=== PATIENT | male | born 1945 | race Caucasian/White ===

== ENCOUNTER 2017-09-28 19:33 | Inpatient (IN) | payer MEDICARE ==
[~2017-09-28] VITALS: Ht 170.2 cm; Wt 61.2 kg
--- NOTE | ~2017-09-28 | OP ---
PATIENT NAME: JOAN LYNN MEDICAL RECORD: [id number] :49 LOCATION:D.MS Hansen2231 ADMISSION DATE:09/28/17 SURGEON: SHAUN BURRIS MD DATE OF OPERATION: 09/30/2017 PREOPERATIVE DIAGNOSES: 1. Cecal polyp. 2. Chronic obstructive pulmonary disease. 3. Hypertension. 4. Gastroesophageal reflux disease. POSTOPERATIVE DIAGNOSES: 1. Cecal polyp. 2. Chronic obstructive pulmonary disease. 3. Hypertension. 4. Gastroesophageal reflux disease. PROCEDURE: Hand-assisted laparoscopic right hemicolectomy. SURGEON: Shaun Burris MD DAIRY DEPARTMENT MANAGER: Linda Sutherland APRN REPORT OF PROCEDURE: The patient's abdomen was prepped and draped in sterile fashion. A cutdown was made around the umbilicus. Electrocautery was used to dissect through the subcutaneous tissues and fascia and we entered the abdominal cavity. A Gel port was inserted with a 5-mm trocar within it. Using this, we were able to insufflate the abdomen and placed a 5-mm trocar in the epigastrium and another in the right subcostal region. The patient's right colon was mobilized. Upon mobilization, the colon was noted to have a diffuse amount of stool present within it. We eventually mobilized the right colon, the appendix, and the hepatic flexure. We continued our dissection medially of the transverse colon, taking down any adhesions using electrocautery. The patient had a history of mesh hernia repair in the right lower quadrant, which was causing some adhesions. These were taken down using electrocautery and blunt dissection. Eventually, we had the entire right colon mobilized and we were able to eviscerate this through the wound protector. The colon was transected on the proximal transverse colon using a 75 blue load ISSA stapler. The terminal ileum was transected using a 75 blue load ISSA stapler. The mesentery was taken down with sequential clamp and tie technique using 3-0 silks. Once the colon was completely excised, it was opened up on the back table and the polyp was noted to be present in the cecum. A acln-ja-sakc anastomosis was performed using a 70 blue load ISSA stapler and the enterotomies were closed with a 30 blue load TA stapler. I oversewed the staple line using Lemberted 3-0 silks and the anastomosis was placed back into the abdominal cavity. We irrigated out the abdomen and assured there was no sign of any active bleeding, which there was none. The ports and insufflation were then removed. The midline fascia had a hernia defect around the umbilicus and this was freed up and then reapproximated using running #1 loop PDS's times 2. The subcutaneous tissues were irrigated out and then reapproximated with interrupted 3-0 Vicryl and the skin was closed with alfredo. COMPLICATIONS: None. CONDITION: Stable. OPERATIVE REPORT [id number] JOAN LYNN ANESTHESIA: General endotracheal. BLOOD LOSS: 30 mL. TRANSINT:[id number] Voice Confirmation ID: [id number] DOCUMENT ID: [id number] SHAUN BURRIS MD at 1147 CC: [id number] DICTATION DATE: 09/30/17 1315 FORESTRY AID: 09/30/17 1406 ADM IN [place] [id number] [place] [address]
--- NOTE | ~2017-09-28 | EC ---
PATIENT:JOAN LYNN DATE OF SERVICE: 09/28/17 SEX: M MEDICAL RECORD: [id number] DATE OF : 49 LOCATION:D.MS Hansen223 AGE OF PATIENT: 72 ADMISSION DATE: 09/28/17 REFERRING PHYSICIAN: INTERPRETING PHYSICIAN: LIZETTE ALANIZ MD ECHOCARDIOGRAM REPORT ECHO CHARGES 5 ECHO LIMITED Date: 09/30 CLINICAL DIAGNOSIS: ASSESS EF PRE SURGERY HX OF HTN ECHOCARDIOGRAPHIC MEASUREMENTS (adult normal given) AC root (d.<3.7cm) 3.8 cm LV Septum d (<1.2 cm> 1.3 cm Valve Excursion 1.2 cm LV Septum (systole) 1.5 cm Left Atria (s.<4.0cm> 3.4 cm LVPW d(<1.2cm) 1.3 cm RV (d.<2.3cm) 4.2 cm LVPW (sytole) 1.8 cm LV diastole(<5.6CM) 4.5 cm MV E-F(>70mm/sec) cm LV systole 2.8 cm LVOT Diameter cm MV exc.(>10mm) 1.5 cm Est.ejection fraction (50-75%) % DOPPLER: LVIT cm/sec A cm/sec E cm/sec LA cm/sec RVSP mmHg LVOT cm/sec AOP1/2T m/s Asc. Ao cm/sec RVOT cm/sec RA cm/sec PA cm/sec AV Gradient Peak mmHg AV Mean mmHg AV Area cm MV Gradient Peak mmHg MV Mean mmHg MV Area cm COMMENTS: Cnc Machinist: Massiel ARCE Speech Language Specialist: Massiel Allen TAPE# PACS Pericardial Effusion N DATE OF SERVICE: 09/30/2017 FINDINGS: 1. Left ventricular chamber size is within normal limits. Left ventricular systolic function is normal. Overall ejection fraction estimated at 60%. 2. Left atrium, right atrium, and right ventricular chamber sizes are within normal limits. 3. Valvular structures have normal structure and motion. 4. Doppler interrogation only reveals qjptg-vm-[id number] tricuspid regurgitation, no other valvular insufficiency or stenosis. ECHOCARDIOGRAM REPORT [id number] JOAN LYNN 5. No evidence of pericardial effusion or left ventricular thrombus. TRANSINT:[id number] Voice Confirmation ID: [id number] DOCUMENT ID: [id number] LIZETTE ALANIZ MD at 1710 CC: [id number] DICTATION DATE: 09/30/17 1353 ANALYST FOOD AND BEVERAGE: 09/30/17 1422 ADM IN [facility] [address] [facility]
[2017-09-29] VITALS (7 sets, daily range): BP systolic 120–134; BP diastolic 67–87; Ht 170.2 cm; Wt 61.2 kg
[2017-09-29 05:00] LABS: BASOPHILS 0.1 % (0-2); HEMATOCRIT 45.7 % (42.0-54.0); HEMOGLOBIN 15.1 g/dL (13.5-17.5); IMMATURE GRANULOCYTES 0.4 % (0-5); LYMPHOCYTES 22.3 % (15-50); MCH 29.4 pg (26.0-34.0); MCV 89.1 fL (80.0-100.0); MEAN PLATELET VOLUME 8.8 fL (7.4-10.4); MONOCYTES 6.7 % (2-11); NEUTROPHILS 66.5 % (40-80); PLATELET COUNT 353 10x3/uL (130-400); RBC 5.13 10x6/uL (4.20-6.10); RDW 14.2 % (11.5-14.5); WBC 7.5 10x3/uL (4.8-10.8)
[2017-09-29 05:47] LABS: ALBUMIN 3.7 g/dL (3.4-5.0); ALKALINE PHOSPHATASE 71 U/L (46-116); ALT (SGPT) 16 U/L (10-68); CALC OSMOLALITY 278 mosm/kg (275-300); CALCIUM 8.7 mg/dL (8.5-10.1); CARBON DIOXIDE 28.6 mmol/L (21.0-32.0); CHLORIDE - SERUM 104 mmol/L (98-107); CREATININE - SERUM 0.9 mg/dL (0.6-1.3); GLUCOSE 108 mg/dL (74-106); POTASSIUM - SERUM 4.1 mmol/L (3.5-5.1); SODIUM 140 mmol/L (136-145); UREA NITROGEN 10 mg/dL (7-18); eGFR NON AFRICAN AMERICAN 89 mL/min (90-120)
[2017-09-29] MEDS ORDERED: PRINIVIL20 MG PO (09:49)
[2017-09-29] MEDS ORDERED: PROTONIX40 MG PO (09:50)
[2017-09-29] MEDS ORDERED: CARAFATE1 G PO (09:51)
[2017-09-29] MEDS ORDERED: HYDROCODONE-APA1 TAB PO (09:51)
[2017-09-29] MEDS ORDERED: SOMA350 MG PO (09:52)
[2017-09-29 19:59] LABS: APTT 35.7 SECONDS (22.8-39.4); INR 1.04 (0.85-1.17); PROTIME 13.2 SECONDS (11.6-15.0)
[2017-09-30] VITALS (11 sets, daily range): BP systolic 100–149; BP diastolic 56–81
[2017-09-30 05:29] LABS: BASOPHILS 0.1 % (0-2); EOSINOPHILS 2.7 % (0-7); HEMATOCRIT 43.4 % (42.0-54.0); HEMOGLOBIN 14.3 g/dL (13.5-17.5); IMMATURE GRANULOCYTES 0.2 % (0-5); LYMPHOCYTES 16.1 % (15-50); MCH 29.2 pg (26.0-34.0); MCHC 32.9 g/dL (31.0-37.0); MCV 88.6 fL (80.0-100.0); MEAN PLATELET VOLUME 8.7 fL (7.4-10.4); MONOCYTES 5.1 % (2-11); NEUTROPHILS 75.8 % (40-80); PLATELET COUNT 347 10x3/uL (130-400); RDW 14.1 % (11.5-14.5); WBC 8.9 10x3/uL (4.8-10.8)
[2017-09-30 05:41] LABS: CALC OSMOLALITY 283 mosm/kg (275-300); CALCIUM 8.7 mg/dL (8.5-10.1); CHLORIDE - SERUM 107 mmol/L (98-107); CREATININE - SERUM 0.9 mg/dL (0.6-1.3); GLUCOSE 116 mg/dL (74-106); POTASSIUM - SERUM 4.2 mmol/L (3.5-5.1); SODIUM 143 mmol/L (136-145); eGFR NON AFRICAN AMERICAN 89 mL/min (90-120)
[2017-09-30 05:45] LABS: UREA NITROGEN 7 mg/dL (7-18)
[2017-10-01 04:55] VITALS: BP 98/74
[2017-10-01 05:27] LABS: BASOPHILS 0 % (0-2); EOSINOPHILS 0 % (0-7); IMMATURE GRANULOCYTES 0.2 % (0-5); LYMPHOCYTES 8.7 % (15-50); MCH 28.9 pg (26.0-34.0); MCHC 32.4 g/dL (31.0-37.0); MCV 89.5 fL (80.0-100.0); MEAN PLATELET VOLUME 8.8 fL (7.4-10.4); NEUTROPHILS 83.1 % (40-80); RDW 14.6 % (11.5-14.5); WBC 10.7 10x3/uL (4.8-10.8)
[2017-10-01 05:31] LABS: PLATELET COUNT 447 10x3/uL (130-400)
[2017-10-01 05:32] LABS: ANION GAP 15.3 mmol/L (8-16); CARBON DIOXIDE 23.4 mmol/L (21.0-32.0); POTASSIUM - SERUM 4.7 mmol/L (3.5-5.1)
[2017-10-01 05:42] LABS: CREATININE - SERUM 1.2 mg/dL (0.6-1.3)
[2017-10-01 08:32] VITALS: BP 102/58
[2017-10-01 11:44] VITALS: BP 123/67
[2017-10-01 16:17] VITALS: BP 110/64
[2017-10-01 19:56] VITALS: BP 130/73
[2017-10-02] VITALS: BP 135/75
[2017-10-02 04:06] VITALS: BP 136/79
[2017-10-02 06:44] LABS: BASOPHILS 0.1 % (0-2); EOSINOPHILS 0.8 % (0-7); HEMATOCRIT 30.8 % (42.0-54.0); HEMOGLOBIN 9.9 g/dL (13.5-17.5); IMMATURE GRANULOCYTES 0.1 % (0-5); LYMPHOCYTES 11.2 % (15-50); MCH 28.9 pg (26.0-34.0); MCHC 32.1 g/dL (31.0-37.0); MCV 89.8 fL (80.0-100.0); MEAN PLATELET VOLUME 8.5 fL (7.4-10.4); MONOCYTES 8.2 % (2-11); NEUTROPHILS 79.6 % (40-80); PLATELET COUNT 432 10x3/uL (130-400); RBC 3.43 10x6/uL (4.20-6.10); RDW 14.8 % (11.5-14.5); WBC 8.9 10x3/uL (4.8-10.8)
[2017-10-02 07:00] LABS: CALCIUM 8.3 mg/dL (8.5-10.1); CARBON DIOXIDE 24.6 mmol/L (21.0-32.0); CHLORIDE - SERUM 109 mmol/L (98-107); GLUCOSE 125 mg/dL (74-106); SODIUM 143 mmol/L (136-145)
[2017-10-02 07:11] LABS: CALC OSMOLALITY 284 mosm/kg (275-300); CREATININE - SERUM 0.8 mg/dL (0.6-1.3); UREA NITROGEN 11 mg/dL (7-18); eGFR NON AFRICAN AMERICAN > 90 mL/min (90-120)
[2017-10-02 08:02] VITALS: BP 173/83
[2017-10-02 11:53] VITALS: BP 168/88
[2017-10-02 16:12] VITALS: BP 158/80
[2017-10-02 19:59] VITALS: BP 150/82
[2017-10-03] VITALS: BP 150/79
[2017-10-03 04:00] VITALS: BP 166/85
[2017-10-03 06:02] LABS: BASOPHILS 0.1 % (0-2); EOSINOPHILS 1.5 % (0-7); HEMATOCRIT 27.5 % (42.0-54.0); HEMOGLOBIN 8.8 g/dL (13.5-17.5); IMMATURE GRANULOCYTES 0.1 % (0-5); LYMPHOCYTES 13.2 % (15-50); MCH 28.6 pg (26.0-34.0); MCV 89.3 fL (80.0-100.0); MEAN PLATELET VOLUME 8.4 fL (7.4-10.4); MONOCYTES 7.9 % (2-11); NEUTROPHILS 77.2 % (40-80); PLATELET COUNT 432 10x3/uL (130-400); RBC 3.08 10x6/uL (4.20-6.10); RDW 14.4 % (11.5-14.5)
[2017-10-03 06:17] LABS: CALC OSMOLALITY 284 mosm/kg (275-300); CALCIUM 7.7 mg/dL (8.5-10.1); CARBON DIOXIDE 25.8 mmol/L (21.0-32.0); CHLORIDE - SERUM 111 mmol/L (98-107); CREATININE - SERUM 0.6 mg/dL (0.6-1.3); GLUCOSE 116 mg/dL (74-106); POTASSIUM - SERUM 3.9 mmol/L (3.5-5.1); SODIUM 144 mmol/L (136-145); UREA NITROGEN 5 mg/dL (7-18); eGFR NON AFRICAN AMERICAN > 90 mL/min (90-120)
[2017-10-03 09:18] VITALS: BP 149/80
[2017-10-03 13:25] VITALS: BP 159/88
[2017-10-03 16:20] VITALS: BP 146/78
[2017-10-03 20:00] VITALS: BP 145/77
[2017-10-04] VITALS: BP 155/83
[2017-10-04 04:00] VITALS: BP 159/80
[2017-10-04 06:11] LABS: BASOPHILS 0.1 % (0-2); EOSINOPHILS 2.6 % (0-7); HEMATOCRIT 27.3 % (42.0-54.0); HEMOGLOBIN 8.7 g/dL (13.5-17.5); IMMATURE GRANULOCYTES 0.8 % (0-5); LYMPHOCYTES 12.3 % (15-50); MCH 28.4 pg (26.0-34.0); MCHC 31.9 g/dL (31.0-37.0); MCV 89.2 fL (80.0-100.0); MEAN PLATELET VOLUME 8.3 fL (7.4-10.4); NEUTROPHILS 77.2 % (40-80); PLATELET COUNT 475 10x3/uL (130-400); RBC 3.06 10x6/uL (4.20-6.10); RDW 14.4 % (11.5-14.5); WBC 7.2 10x3/uL (4.8-10.8)
[2017-10-04 06:33] LABS: CALC OSMOLALITY 284 mosm/kg (275-300); CALCIUM 7.7 mg/dL (8.5-10.1); CARBON DIOXIDE 27.1 mmol/L (21.0-32.0); CHLORIDE - SERUM 110 mmol/L (98-107); CREATININE - SERUM 0.7 mg/dL (0.6-1.3); GLUCOSE 114 mg/dL (74-106); POTASSIUM - SERUM 3.6 mmol/L (3.5-5.1); SODIUM 144 mmol/L (136-145); UREA NITROGEN 4 mg/dL (7-18); eGFR NON AFRICAN AMERICAN > 90 mL/min (90-120)
[2017-10-04 08:22] VITALS: BP 159/81
[2017-10-04] MEDS ORDERED: PROSCAR5 MG PO (10:26)
== END 2017-10-04 12:59 | disposition home or self-care (01) | DRG 330 ==
LOC: D.MS 19:33
PROVIDERS: Internal Medicine Nephrology; Surgery
PROC: 0DTF0ZZ Resection of Right Large Intestine, Open Approach (ICD-10-PCS; principal; 2017-09-30 11:00)
DX: D12.0 Benign neoplasm of cecum (principal); J44.0 Chronic obstructive pulmonary disease with (acute) lower respiratory infection; N13.8 Other obstructive and reflux uropathy; K29.60 Other gastritis without bleeding; N40.1 Benign prostatic hyperplasia with lower urinary tract symptoms; R33.8 Other retention of urine; I73.9 Peripheral vascular disease, unspecified; K21.9 Gastro-esophageal reflux disease without esophagitis; K59.00 Constipation, unspecified; I10 Essential (primary) hypertension; K75.81 Nonalcoholic steatohepatitis (NASH)

== ENCOUNTER 2017-10-07 21:00 | Inpatient (IN) | payer MEDICARE ==
[~2017-10-07] VITALS: Ht 170.2 cm; Wt 59.0 kg
--- NOTE | ~2017-10-07 | EC ---
PATIENT:JOAN LYNN DATE OF SERVICE: 10/07/17 SEX: M MEDICAL RECORD: [id number] DATE OF : 49 LOCATION:D.MS Hansen221 AGE OF PATIENT: 72 ADMISSION DATE: 10/07/17 REFERRING PHYSICIAN: INTERPRETING PHYSICIAN: LIZETTE STARK MD ECHOCARDIOGRAM REPORT ECHO CHARGES 5 ECHO LIMITED Date: 10/08 CLINICAL DIAGNOSIS: ASSESS EF/CHF POST 1 WEEK SURGERY ECHOCARDIOGRAPHIC MEASUREMENTS (adult normal given) AC root (d.<3.7cm) cm LV Septum d (<1.2 cm> 1.6 cm Valve Excursion cm LV Septum (systole) 1.8 cm Left Atria (s.<4.0cm> cm LVPW d(<1.2cm) 1.5 cm RV (d.<2.3cm) cm LVPW (sytole) 1.6 cm LV diastole(<5.6CM) 3.5 cm MV E-F(>70mm/sec) cm LV systole 1.9 cm LVOT Diameter cm MV exc.(>10mm) cm Est.ejection fraction (50-75%) % DOPPLER: LVIT cm/sec A cm/sec E cm/sec LA cm/sec RVSP 30 mmHg LVOT cm/sec AOP1/2T m/s Asc. Ao cm/sec RVOT cm/sec RA cm/sec PA cm/sec AV Gradient Peak mmHg AV Mean mmHg AV Area cm MV Gradient Peak mmHg MV Mean mmHg MV Area cm COMMENTS: Creative Arts Therapist: Massiel ARCE Track Coach: Keisha Stark TAPE# PACS Pericardial Effusion N DATE OF SERVICE: 10/08/2017 ECHOCARDIOGRAM FINDINGS: 1. Left ventricular chamber size is within normal limits. Left ventricular systolic function is normal. Overall ejection fraction estimated at 60%. 2. Left atrium is within normal limits. Right atrium and right ventricle chamber sizes are mildly dilated. 3. Valvular structures have normal structure and motion. ECHOCARDIOGRAM REPORT [id number] JOAN LYNN 4. Doppler interrogation reveals mild tricuspid regurgitation, no other valvular insufficiency or stenosis and pulmonary systolic pressure is normal estimated at 30 mmHg. 5. No evidence of pericardial effusion or left ventricular thrombus. TRANSINT:[id number] Voice Confirmation ID: [id number] DOCUMENT ID: [id number] LIZETTE STARK MD at 2001 CC: [id number] DICTATION DATE: 10/08/17 1334 BEARING MACHINE OPERATOR: 10/08/17 1435 ADM IN [facility] [address] [place] [id number]
--- NOTE | ~2017-10-07 | HEMODYNAMI ---
PATIENT:JOAN LYNN MEDICAL RECORD: [id number] : 49 LOCATION:.HI D.2214 ADMISSION DATE: 10/07/17 Generatedon:10/12/201714:12 Patient name: JOAN LYNN Patient #: [id number] SSN: : 1945 Date of study: 10/12/2017 Page: Of Hemodynamic Procedure Report Patient Data Patient Demographics Procedure consent was obtained First Name: JOAN Gender: Male Last Name: LEAH : 1945 Middle Initial: R Age: 72 year(s) Patient #: [id number] Race: Unknown Additional ID: [id number] Contact details Address: [address] [place] [address] State: [place] City: [place] Zip code: [address] Past Medical History Allergies: No known allergies Admission Admission Data Admission Date: 10/07/2017 Admission Time: 22:53 Room #: [facility] Height (in.): 67 BSA: 1.68 (m2) Height (cm.): 170.18 BMI: 20.2 (kg/m2) Weight (lbs.): 129 Weight (kg.): 58.51 Procedure Procedure Types Cath Procedure Peripheral Cath Diagnostic Procedure Cath Peripheral Abscess Abscessogram W Exchange Procedure Description Procedure Date Procedure Date: 10/12/2017 Procedure Start Time: 13:39 Procedure Staff Name Function Arnie Salazar MD Performing Physician Shayla Mayers RT Oracle Database Administrator Qiana Wayne RN Nurse Katt Melissa RT Scrub Procedure Data Cath Procedure Fluoroscopy Diagnostic fluoroscopy Total fluoroscopy Time: 0.8 time: 0.8 min min Diagnostic fluoroscopy Total fluoroscopy dose: 13 dose: 13 mGy mGy Contrast Material Contrast Material Type Amount (ml) Isovue 300 10 Procedure Medications Medication Administration Route Dosage Lidocaine 1% added to field 20 Heparin Flush Bag added to field 1 bags (1000units/500ml NS) Versed I.V. 1 mg Fentanyl I.V. 50 mcg Versed I.V. 1 mg Fentanyl I.V. 50 mcg Hemodynamics Rest BSA: 1.68 (m2) O2 Consumption: Estimated: 222.85 (ml/min) O2 Consumption indexed : Estimated:132.65 (ml/min/m) Heart Rate: 115 (bpm) Snapshots Pre Cath Intra NCS Post Cath Vital Signs Time Heart Resp SPO2 etCO2 NIBP (mmHg) Rhythm Pain Sedation Rate (ipm) (%) (mmHg) Status Level (bpm) 13:19:24 104 26 94 0 164/96(132) NSR 0 (11) 10(A) , No pain 13:23:38 105 22 93 0 151/100(128) NSR 0 (11) 10(A) , No pain 13:27:52 107 20 92 0 151/97(122) NSR 0 (11) 10(A) , No pain 13:32:04 105 20 94 14.2 156/93(120) NSR 0 (11) 10(A) , No pain 13:36:20 107 20 94 19.5 167/96(116) NSR 0 (11) 10(A) , No pain 13:40:32 106 22 94 19.5 156/98(114) NSR 0 (11) 10(A) , No pain 13:44:46 120 23 95 13.5 154/84(114) NSR 0 (11) 10(A) , No pain 13:48:58 108 26 93 13.5 152/90(115) NSR 0 (11) 10(A) , No pain 13:53:06 108 29 98 25.5 149/94(121) NSR 0 (11) 10(A) , No pain 13:57:19 106 26 97 14.2 137/88(109) NSR 0 (11) 10(A) , No pain 14:01:28 110 20 97 13.5 147/91(122) NSR 0 (11) 10(A) , No pain 14:05:41 105 26 97 15.7 140/87(106) NSR 0 (11) 10(A) , No pain 14:09:49 103 26 98 23.2 136/86(104) NSR 0 (11) 10(A) , No pain Medications Time Medication Route Dose Verified Delivered Reason Notes Effec tiveness by by 13:22:22 Lidocaine 1% added 20ml Arnie Gaitan used for to vial Martin Salazar procedure field MD REHMAN 13:22:44 Heparin Flush added 1 Arnie Gaitan used for Bag to bags Martin Salazar procedure (1000units/500ml field MD REHMAN NS) 13:42:15 Versed I.V. 1 mg Arnie Kiran for Martin Wayne RN sedation 13:42:25 Fentanyl I.V. 50 Arnie Kiran for [facility] Martin Wayne RN sedation 13:45:56 Versed I.V. 1 mg Arnie Kiran for Martin Wayne RN sedation 13:46:04 Fentanyl I.V. 50 Arnie Kiran for [facility] Martin Wayne RN sedation Procedure Log Time Note 12:15:38 Patient Weight : 129 lbs 12:15:48 Patient Height : 67 inches 12:40:01 Use device set IR Diagnostic 12:43:12 Sterile Angiographic Pack opened to sterile field. 12:43:13 Bag Decanter (2002S) opened to sterile field. 12:43:15 ORI .035 15cm wire ([id number]) opened to sterile field. 13:17:31 Time tracking: Regular hours (M-F 7:00 - 5:00) 13:17:58 Plan of Care:Hemodynamics will remain stable., Cardiac rhythm will remain stable., Comfort level will be maintained., Respiratory function will remain adequate., Patient/ family verbilizes understanding of procedure., Procedure tolerated without complication., Recovers from procedure without complications.. 13:18:06 Patient received from Med/Surg to IR Alert and oriented. Tansferred to table in Supine position. 13:18:09 Correct patient and procedure confirmed by team. 13:18:13 Signed procedure consent form obtained from patient. 13:18:17 ECG and BP/O2 sat monitors applied to patient. 13:18:19 Vital chart was started 13:18:20 Baseline sample Acquired. 13:18:22 Full Disclosure recording started 13:18:23 - 13:18:28 H&P Date Dictated: 10/12/2017 Within 30 days and on chart.. 13:18:31 Pre-procedure instructions explained to patient. 13:18:32 Pre-op teaching completed and patient verbalized understanding. 13:18:35 Family unavailable. 13:18:38 Patient NPO since Midnight. 13:18:56 Patient allergic to No known allergies 13:19:01 Is the patient allergic to Iodine/contrast media? No. 13:21:49 Patient diabetic? No. 13:21:52 Patient diabetic? No. 13:21:56 ----Pre-sedation anethsthesia assessment.---- 13:22:02 Previous problem with sedation/anesthesia? No ? 13:22:05 Snore? Yes 13:22:07 Sleep apnea? No 13:22:12 Deviated septum? No 13:22:15 Opens mouth fully? Yes 13:22:18 Sticks out tongue? Yes 13:22:21 Airway obstruction? No ? 13:22:22 Lidocaine 1% 20ml vial added to field was administered by Arnie hernandez MD; used for procedure; 13:22:24 Dentures? No ? 13:22:26 - 13:22:44 Heparin Flush Bag (1000units/500ml NS) 1 bags added to field was administered by Arnie Salazar MD; used for procedure; 13:23:13 IV patent on arrival in left antecubital with D5/.45%NaCl at O. 13:23:26 Right abdomen area was prepped with chlora-prep and draped in sterile fashion 13:23:29 - 13:38:39 Physician arrived 13:38:48 --------ALL STOP TIME OUT------ 13:38:49 Final Timeout: patient, procedure, and site verified with staff and physician. All members of the team are in agreement. 13:39:03 Procedure started. 13:39:09 Local anesthetic to Abdominal area with Lidocaine 1% by Arnie Salazar MD.INITIAL ACCESS ONLY 13:42:15 Versed 1 mg I.V. was administered by Qiana Wayne RN; for sedation; 13:42:25 Fentanyl 50 mcg I.V. was administered by Qiana Wayne RN; for sedation ; 13:42:26 DILATOR, VESSEL 14/20 opened to sterile field. 13:42:28 Cook MULTIPURPOSE 18FR Drainage Catheter ([id number]) opened to sterile field. 13:45:56 Versed 1 mg I.V. was administered by Qiana Wayne RN; for sedation; 13:46:04 Fentanyl 50 mcg I.V. was administered by Qiana Wayne RN; for sedation ; 13:46:18 STOPCOCK 3-Way Large Bore ([id number]) opened to sterile field. 14:00:25 Tegaderm 6 x 8 (1628) opened to sterile field. 14:01:24 18fr mpd placed in abdominal abscess and sutured in place 14:02:04 450 cc of abdominal abscess fluid drained and a sample sent to lab. 14:02:24 Procedure ended.(Physican Out) 14:02:31 Fluoroscopy time 00.80 minutes. 14:02:34 Fluoroscopy dose: 13 mGy 14:02:34 Flurop Dose total: 13 14:03:05 Procedure and supply charges have been captured, reviewed, submitted an d are correct. 14:11:08 Contrast amount:Isovue 300 10ml. 14:11:22 Report given to Med/Surg. 14:11:27 Patient transfered to Med/Surg with Bed. 14:11:29 End room use (Document Last) 14:12:47 Vital chart was stopped Device Usage Item Name Manufacture Quantity Catalog Hospital Part Current Minimal Lot# / Number Charge Number Stock Stock Serial# Code Sterile Cardinal 1 [id number] 5 Angiographic Health Pack Bag Decanter Microtek 1 [id number] 21038 [id number] 5 () Medical Inc. ORI .035 [employer] 1 [id number] [id number] 5 [id number] 15cm wire (S60192) DILATOR, [facility] 1 [id number] 095386 787799 [id number] 5 [id number] VESSEL [facility] 1 [id number] 157125 [id number] 5 [id number] MULTIPURPOSE 18FR Drainage Catheter (V15843) [facility] [id number] 2120 [id number] 5 [id number] 3-Way Large Bore (K80610) Tegaderm 6 x 3M 1 1628 588474 [id number] 5 8 (1168) Signature Audit [place] Stage Time Signature Unsigned Intra-Procedure 10/12/2017 Shayla Mayers 2:12:42 PM RT(R) [facility] [address] [place] [address]
--- NOTE | ~2017-10-07 | HEMODYNAMI ---
PATIENT:JOAN LYNN MEDICAL RECORD: [id number] : 49 LOCATION:[facility] D.2214 ADMISSION DATE: 10/07/17 Generatedon:10/19/201716:59 Patient name: JOAN LYNN Patient #: [id number] SSN: : 1945 Date of study: 10/19/2017 Page: Of Hemodynamic Procedure Report Patient Data Patient Demographics Procedure consent was obtained First Name: JOAN Gender: Male Last Name: LEAH : 1945 Middle Initial: R Age: 72 year(s) Patient #: [id number] Race: Unknown Additional ID: [id number] Contact details Address: [address] [place] [address] State: [place] City: [place] Zip code: [address] Past Medical History Allergies: No known allergies Admission Admission Data Admission Date: 10/07/2017 Admission Time: 22:53 Room #: [facility]4 Height (in.): 67 BSA: 1.68 (m2) Height (cm.): 170.18 BMI: 20.2 (kg/m2) Weight (lbs.): 129 Weight (kg.): 58.51 Procedure Procedure Types Cath Procedure Peripheral Cath Diagnostic Procedure Miscellaneous Procedure Description Procedure Date Procedure Date: 10/19/2017 Procedure Start Time: 16:38 Procedure Staff Name Function Adrien Zavala MD Performing Physician John Davis RT Scrub Shayla Mayers RT Monitor Thea Hammonds RN Monitor Procedure Data Cath Procedure Fluoroscopy Diagnostic fluoroscopy Total fluoroscopy Time: 1 time: 1 min min Diagnostic fluoroscopy Total fluoroscopy dose: 22 dose: 22 mGy mGy Contrast Material Contrast Material Type Amount (ml) Isovue 300 60 Hemodynamics Rest BSA: 1.68 (m2) O2 Consumption: Estimated: 228.48 (ml/min) O2 Consumption indexed : Estimated:136 (ml/min/m) Pre Cath Intra NCS Post Cath Procedure Log Time Note 15:43:36 Patient Height : 67 inches 15:43:36 Patient Weight : 129 lbs 16:10:34 Use device set IR Diagnostic 16:10:37 Sterile Angiographic Pack opened to sterile field. 16:10:38 Bag Decanter (2001S) opened to sterile field. 16:10:47 - 16:21:08 Time tracking: Regular hours (M-F 7:00 - 5:00) 16:21:42 Patient received from Med/Surg to IR Alert and oriented. Tansferred to table in Supine position. 16:21:46 Signed procedure consent form obtained from patient. 16:21:49 - 16:21:54 H&P Date Dictated: 10/19/2017 Within 30 days and on chart.. 16:22:24 Family unavailable. 16:22:27 Patient NPO since Midnight. 16:22:31 - 16:37:33 Physician arrived 16:37:36 --------ALL STOP TIME OUT------ 16:37:37 Final Timeout: patient, procedure, and site verified with staff and physician. All members of the team are in agreement. 16:38:03 Procedure started. 16:38:04 Full Disclosure recording started 16:38:11 Local anesthetic to Abdominal area with Lidocaine 1% by Adrien Zavala MD.INITIAL ACCESS ONLY 16:48:23 CONNECTING TUBE FOR DRAINAGE BAG ([id number]) opened to sterile field. 16:48:53 SUTURE SILK 2-0 BLK BR FS 18 I opened to sterile field. 16:48:54 SUTURE SILK 2-0 BLK BR FS 18 I opened to sterile field. 16:49:20 Procedure ended.(Physican Out) 16:49:25 Fluoroscopy time 01.00 minutes. 16:49:37 Fluoroscopy dose: 22 mGy 16:49:37 Flurop Dose total: 22 16:49:43 Contrast amount:Isovue 300 60ml. 16:59:20 Report given to Med/Surg. 16:59:27 Patient transfered to Med/Surg with Bed. Device Usage Item Name Manufacture Quantity Catalog Hospital Part Current Minimal Lot# / Number Charge Number Stock Stock Serial# Code Sterile Cardinal 1 [id number] 5 Angiographic Health Pack Bag Decanter Microtek 1 [id number] 94221 [id number] 5 () Medical Inc. CONNECTING [place] 1 [id number] [id number] 595844 5 TUBE FOR Scientific DRAINAGE BAG ([id number]) SUTURE SILK [employer] 2 [id number] 453361 5 2-0 BLK BR FS 18 I Signature Audit [place] Stage Time Signature Unsigned Intra-Procedure 10/19/2017 Shayla Mayers 4:59:42 PM RT(R) Signatures Monitor : Shayla Mayers RT Signature : Date : Time : Monitor : Thea Signature : Cassius RN Date : Time : [facility] [address] [place] [place], [place] [address]
[~2017-10-07 21:00] MED LIST: CARAFATE1 G PO; HYDROCODONE-APA1 TAB PO; PRINIVIL20 MG PO; PROSCAR5 MG PO; PROTONIX40 MG PO; SOMA350 MG PO
[2017-10-07 23:51] VITALS: BP 170/85
[2017-10-07 23:54] VITALS: BP 170/85; BMI 20.4
[2017-10-08 04:23] VITALS: BP 142/77
[2017-10-08 05:27] LABS: BASOPHILS 0.1 % (0-2); EOSINOPHILS 0 % (0-7); HEMATOCRIT 32.2 % (42.0-54.0); HEMOGLOBIN 10.3 g/dL (13.5-17.5); IMMATURE GRANULOCYTES 1.2 % (0-5); LYMPHOCYTES 5.5 % (15-50); MCH 28.6 pg (26.0-34.0); MCV 89.4 fL (80.0-100.0); MEAN PLATELET VOLUME 8.7 fL (7.4-10.4); MONOCYTES 7.5 % (2-11); NEUTROPHILS 85.7 % (40-80); RDW 15.2 % (11.5-14.5); WBC 9.4 10x3/uL (4.8-10.8)
[2017-10-08 05:29] LABS: PLATELET COUNT 587 10x3/uL (130-400)
[2017-10-08 06:04] LABS: ALBUMIN 1.9 g/dL (3.4-5.0); ALKALINE PHOSPHATASE 87 U/L (46-116); ALT (SGPT) 9 U/L (10-68); AMYLASE - SERUM 24 U/L (25-115); BILIRUBIN - TOTAL 0.48 mg/dL (0.2-1.3); CALC OSMOLALITY 293 mosm/kg (275-300); CALCIUM 8.2 mg/dL (8.5-10.1); CARBON DIOXIDE 33.5 mmol/L (21.0-32.0); CHLORIDE - SERUM 105 mmol/L (98-107); GLUCOSE 133 mg/dL (74-106); LIPASE 150 U/L (73-393); POTASSIUM - SERUM 3.8 mmol/L (3.5-5.1); PRO BNP 6578 pg/mL (0-125); PROTEIN - SERUM 6.2 g/dL (6.4-8.2); SODIUM 144 mmol/L (136-145); UREA NITROGEN 27 mg/dL (7-18); eGFR NON AFRICAN AMERICAN 78 mL/min (90-120)
[2017-10-08 08:45] VITALS: BP 155/88
[2017-10-08 10:41] VITALS: Ht 170.2 cm; Wt 59.0 kg
[2017-10-08 11:23] LABS: INR 1.1 (0.85-1.17); PROTIME 13.8 SECONDS (11.6-15.0)
[2017-10-08 11:24] LABS: APTT 32.5 SECONDS (22.8-39.4)
[2017-10-08 12:39] LABS: MAGNESIUM - SERUM 2.6 mg/dL (1.8-2.4); PHOSPHOROUS 2.6 mg/dL (2.5-4.9)
[2017-10-08 12:50] VITALS: BP 154/88
[2017-10-08 20:00] VITALS: BP 160/93
[2017-10-09] VITALS: BP 169/86
[2017-10-09] MEDS ORDERED: FUROSEMIDE20 MG PO (02:48)
[2017-10-09] MEDS ORDERED: LASIX20 MG PO (02:49)
[2017-10-09 04:52] VITALS: BP 166/91
[2017-10-09 07:09] LABS: CALCIUM 8.3 mg/dL (8.5-10.1); CARBON DIOXIDE 34.6 mmol/L (21.0-32.0); CHLORIDE - SERUM 109 mmol/L (98-107); CREATININE - SERUM 0.9 mg/dL (0.6-1.3); MAGNESIUM - SERUM 2.2 mg/dL (1.8-2.4); SODIUM 149 mmol/L (136-145); eGFR NON AFRICAN AMERICAN 89 mL/min (90-120)
[2017-10-09 07:12] LABS: CALC OSMOLALITY 303 mosm/kg (275-300); GLUCOSE 211 mg/dL (74-106); PHOSPHOROUS 1.4 mg/dL (2.5-4.9); UREA NITROGEN 19 mg/dL (7-18)
[2017-10-09 08:49] VITALS: BP 170/89
[2017-10-09 12:40] LABS: BASOPHILS 0.1 % (0-2); EOSINOPHILS 0.3 % (0-7); HEMOGLOBIN 10.4 g/dL (13.5-17.5); IMMATURE GRANULOCYTES 1.2 % (0-5); LYMPHOCYTES 6.9 % (15-50); MCH 28.3 pg (26.0-34.0); MCHC 30.6 g/dL (31.0-37.0); MEAN PLATELET VOLUME 9.2 fL (7.4-10.4); MONOCYTES 3.1 % (2-11); NEUTROPHILS 88.4 % (40-80); RBC 3.67 10x6/uL (4.20-6.10); RDW 15.3 % (11.5-14.5)
[2017-10-09 12:47] LABS: MCV 92.6 fL (80.0-100.0); PLATELET COUNT 421 10x3/uL (130-400); WBC 14.5 10x3/uL (4.8-10.8)
[2017-10-09 14:08] VITALS: BP 155/84
[2017-10-09 16:56] VITALS: BP 152/80
[2017-10-09 20:00] VITALS: BP 167/86
[2017-10-10 03:17] VITALS: BP 175/92
[2017-10-10 06:01] LABS: BASOPHILS 0.1 % (0-2); EOSINOPHILS 0.2 % (0-7); HEMATOCRIT 33.5 % (42.0-54.0); HEMOGLOBIN 10.3 g/dL (13.5-17.5); IMMATURE GRANULOCYTES 1.6 % (0-5); MCH 27.8 pg (26.0-34.0); MCHC 30.7 g/dL (31.0-37.0); MONOCYTES 7.4 % (2-11); NEUTROPHILS 84.7 % (40-80); PLATELET COUNT 346 10x3/uL (130-400); RBC 3.71 10x6/uL (4.20-6.10); RDW 15.2 % (11.5-14.5); WBC 14.6 10x3/uL (4.8-10.8)
[2017-10-10 06:09] LABS: MCV 90.3 fL (80.0-100.0)
[2017-10-10 06:16] LABS: CALCIUM 8.4 mg/dL (8.5-10.1); CHLORIDE - SERUM 103 mmol/L (98-107); CREATININE - SERUM 0.8 mg/dL (0.6-1.3); MAGNESIUM - SERUM 2.4 mg/dL (1.8-2.4); SODIUM 145 mmol/L (136-145); UREA NITROGEN 18 mg/dL (7-18); eGFR NON AFRICAN AMERICAN > 90 mL/min (90-120)
[2017-10-10 06:18] LABS: CALC OSMOLALITY 293 mosm/kg (275-300); GLUCOSE 150 mg/dL (74-106); POTASSIUM - SERUM 3.1 mmol/L (3.5-5.1)
[2017-10-10 06:19] LABS: CARBON DIOXIDE 41.9 mmol/L (21.0-32.0)
[2017-10-10 09:17] VITALS: BP 162/82
[2017-10-10 12:38] VITALS: BP 173/110
[2017-10-10 16:58] VITALS: BP 169/93
[2017-10-10 20:58] VITALS: BP 171/89
[2017-10-11 00:53] VITALS: BP 158/90
[2017-10-11 05:29] LABS: BASOPHILS 0.2 % (0-2); EOSINOPHILS 0.1 % (0-7); HEMATOCRIT 36.8 % (42.0-54.0); HEMOGLOBIN 11.3 g/dL (13.5-17.5); IMMATURE GRANULOCYTES 2.3 % (0-5); LYMPHOCYTES 6.7 % (15-50); MCH 28.1 pg (26.0-34.0); MCHC 30.7 g/dL (31.0-37.0); MCV 91.5 fL (80.0-100.0); MEAN PLATELET VOLUME 9.3 fL (7.4-10.4); MONOCYTES 6.6 % (2-11); NEUTROPHILS 84.1 % (40-80); RBC 4.02 10x6/uL (4.20-6.10); RDW 15.6 % (11.5-14.5)
[2017-10-11 05:42] LABS: PLATELET COUNT 464 10x3/uL (130-400); WBC 18.3 10x3/uL (4.8-10.8)
[2017-10-11 05:44] VITALS: BP 164/89
[2017-10-11 05:54] LABS: CALC OSMOLALITY 294 mosm/kg (275-300); CALCIUM 8.8 mg/dL (8.5-10.1); CARBON DIOXIDE 38.6 mmol/L (21.0-32.0); CHLORIDE - SERUM 103 mmol/L (98-107); GLUCOSE 136 mg/dL (74-106); MAGNESIUM - SERUM 2.4 mg/dL (1.8-2.4); POTASSIUM - SERUM 3.3 mmol/L (3.5-5.1); SODIUM 146 mmol/L (136-145); UREA NITROGEN 17 mg/dL (7-18); eGFR NON AFRICAN AMERICAN 78 mL/min (90-120)
[2017-10-11 05:56] LABS: PHOSPHOROUS 3.3 mg/dL (2.5-4.9)
[2017-10-11 08:33] VITALS: BP 192/96
[2017-10-11 12:49] VITALS: BP 168/81
[2017-10-11 16:58] VITALS: BP 156/85
[2017-10-11 19:28] VITALS: BP 160/85
[2017-10-12] VITALS (14 sets, daily range): BP systolic 121–171; BP diastolic 67–94
[2017-10-12 06:31] LABS: BASOPHILS 0.2 % (0-2); EOSINOPHILS 0.4 % (0-7); HEMATOCRIT 33.6 % (42.0-54.0); HEMOGLOBIN 10.1 g/dL (13.5-17.5); IMMATURE GRANULOCYTES 1.6 % (0-5); LYMPHOCYTES 8.5 % (15-50); MCH 27.7 pg (26.0-34.0); MCHC 30.1 g/dL (31.0-37.0); MCV 92.1 fL (80.0-100.0); MEAN PLATELET VOLUME 9.8 fL (7.4-10.4); MONOCYTES 9.2 % (2-11); NEUTROPHILS 80.1 % (40-80); PLATELET COUNT 488 10x3/uL (130-400); RBC 3.65 10x6/uL (4.20-6.10); RDW 15.6 % (11.5-14.5)
[2017-10-12 06:40] LABS: WBC 12.9 10x3/uL (4.8-10.8)
[2017-10-12 07:29] LABS: CALCIUM 8.4 mg/dL (8.5-10.1); CARBON DIOXIDE 34.7 mmol/L (21.0-32.0); CHLORIDE - SERUM 100 mmol/L (98-107); CREATININE - SERUM 0.9 mg/dL (0.6-1.3); MAGNESIUM - SERUM 2.6 mg/dL (1.8-2.4); SODIUM 140 mmol/L (136-145); UREA NITROGEN 17 mg/dL (7-18); eGFR NON AFRICAN AMERICAN 89 mL/min (90-120)
[2017-10-12 07:30] LABS: CALC OSMOLALITY 296 mosm/kg (275-300); GLUCOSE 380 mg/dL (74-106); PHOSPHOROUS 4.2 mg/dL (2.5-4.9); POTASSIUM - SERUM 4.4 mmol/L (3.5-5.1)
[2017-10-12 10:34] LABS: INR 1.11 (0.85-1.17); PROTIME 13.9 SECONDS (11.6-15.0)
[2017-10-13] VITALS (7 sets, daily range): BP systolic 123–180; BP diastolic 77–99
[2017-10-13 04:42] LABS: BASOPHILS 0.3 % (0-2); EOSINOPHILS 1.6 % (0-7); HEMATOCRIT 32.4 % (42.0-54.0); IMMATURE GRANULOCYTES 2.8 % (0-5); LYMPHOCYTES 9.8 % (15-50); MCH 27.9 pg (26.0-34.0); MCHC 30.9 g/dL (31.0-37.0); MCV 90.5 fL (80.0-100.0); MEAN PLATELET VOLUME 9.2 fL (7.4-10.4); MONOCYTES 8.6 % (2-11); NEUTROPHILS 76.9 % (40-80); PLATELET COUNT 533 10x3/uL (130-400); RBC 3.58 10x6/uL (4.20-6.10); RDW 15.4 % (11.5-14.5); WBC 11.9 10x3/uL (4.8-10.8)
[2017-10-13 04:57] LABS: CALC OSMOLALITY 287 mosm/kg (275-300); CALCIUM 8.1 mg/dL (8.5-10.1); CARBON DIOXIDE 34.7 mmol/L (21.0-32.0); CHLORIDE - SERUM 106 mmol/L (98-107); CREATININE - SERUM 0.8 mg/dL (0.6-1.3); MAGNESIUM - SERUM 2.4 mg/dL (1.8-2.4); PHOSPHOROUS 3.2 mg/dL (2.5-4.9); POTASSIUM - SERUM 4.2 mmol/L (3.5-5.1); SODIUM 143 mmol/L (136-145); UREA NITROGEN 15 mg/dL (7-18); eGFR NON AFRICAN AMERICAN > 90 mL/min (90-120)
[2017-10-13 04:58] LABS: GLUCOSE 130 mg/dL (74-106)
[2017-10-14 04:12] VITALS: BP 145/87
[2017-10-14 04:55] LABS: BASOPHILS 0.1 % (0-2); EOSINOPHILS 1.7 % (0-7); HEMATOCRIT 31.6 % (42.0-54.0); HEMOGLOBIN 9.8 g/dL (13.5-17.5); LYMPHOCYTES 8.5 % (15-50); MCH 28.2 pg (26.0-34.0); MCV 90.8 fL (80.0-100.0); MEAN PLATELET VOLUME 9.2 fL (7.4-10.4); MONOCYTES 10.2 % (2-11); NEUTROPHILS 76.5 % (40-80); RBC 3.48 10x6/uL (4.20-6.10); RDW 15.3 % (11.5-14.5); WBC 13.9 10x3/uL (4.8-10.8)
[2017-10-14 04:57] LABS: PLATELET COUNT 683 10x3/uL (130-400)
[2017-10-14 05:25] LABS: CALC OSMOLALITY 280 mosm/kg (275-300); CHLORIDE - SERUM 103 mmol/L (98-107); CREATININE - SERUM 0.9 mg/dL (0.6-1.3); GLUCOSE 138 mg/dL (74-106); MAGNESIUM - SERUM 2.2 mg/dL (1.8-2.4); PHOSPHOROUS 3.3 mg/dL (2.5-4.9); POTASSIUM - SERUM 4.6 mmol/L (3.5-5.1); SODIUM 139 mmol/L (136-145); UREA NITROGEN 14 mg/dL (7-18); eGFR NON AFRICAN AMERICAN 89 mL/min (90-120)
[2017-10-14 05:29] LABS: CARBON DIOXIDE 31.3 mmol/L (21.0-32.0)
[2017-10-14 07:47] VITALS: BP 150/83
[2017-10-14 12:13] VITALS: BP 141/79
[2017-10-14 15:58] VITALS: BP 154/87
[2017-10-14 20:06] VITALS: BP 166/84
[2017-10-15] VITALS: BP 149/84
[2017-10-15 04:17] VITALS: BP 155/85
[2017-10-15 06:29] LABS: BASOPHILS 0.1 % (0-2); EOSINOPHILS 1.6 % (0-7); HEMATOCRIT 30.4 % (42.0-54.0); HEMOGLOBIN 9.4 g/dL (13.5-17.5); IMMATURE GRANULOCYTES 3.2 % (0-5); LYMPHOCYTES 7.5 % (15-50); MCH 27.7 pg (26.0-34.0); MCHC 30.9 g/dL (31.0-37.0); MCV 89.7 fL (80.0-100.0); MEAN PLATELET VOLUME 9.1 fL (7.4-10.4); MONOCYTES 6.9 % (2-11); NEUTROPHILS 80.7 % (40-80); PLATELET COUNT 730 10x3/uL (130-400); RBC 3.39 10x6/uL (4.20-6.10); RDW 14.8 % (11.5-14.5); WBC 15.7 10x3/uL (4.8-10.8)
[2017-10-15 06:59] LABS: CALC OSMOLALITY 272 mosm/kg (275-300); CALCIUM 7.8 mg/dL (8.5-10.1); CARBON DIOXIDE 31.3 mmol/L (21.0-32.0); CHLORIDE - SERUM 103 mmol/L (98-107); CREATININE - SERUM 0.8 mg/dL (0.6-1.3); GLUCOSE 105 mg/dL (74-106); MAGNESIUM - SERUM 1.8 mg/dL (1.8-2.4); POTASSIUM - SERUM 4.4 mmol/L (3.5-5.1); SODIUM 137 mmol/L (136-145); eGFR NON AFRICAN AMERICAN > 90 mL/min (90-120)
[2017-10-15 07:04] LABS: UREA NITROGEN 10 mg/dL (7-18)
[2017-10-15 09:20] VITALS: BP 153/88
[2017-10-15 14:38] VITALS: BP 145/81
[2017-10-15 17:07] VITALS: BP 137/81
[2017-10-15 20:42] VITALS: BP 135/80
[2017-10-16 00:28] VITALS: BP 155/79
[2017-10-16 04:10] VITALS: BP 139/75
[2017-10-16 06:33] LABS: BASOPHILS 0.1 % (0-2); EOSINOPHILS 1.6 % (0-7); HEMATOCRIT 30.2 % (42.0-54.0); HEMOGLOBIN 9.2 g/dL (13.5-17.5); IMMATURE GRANULOCYTES 1.8 % (0-5); LYMPHOCYTES 8.8 % (15-50); MCH 27.5 pg (26.0-34.0); MCHC 30.5 g/dL (31.0-37.0); MCV 90.4 fL (80.0-100.0); MONOCYTES 8.9 % (2-11); NEUTROPHILS 78.8 % (40-80); PLATELET COUNT 833 10x3/uL (130-400); RBC 3.34 10x6/uL (4.20-6.10); WBC 12.9 10x3/uL (4.8-10.8)
[2017-10-16 06:53] LABS: CALC OSMOLALITY 275 mosm/kg (275-300); CALCIUM 7.8 mg/dL (8.5-10.1); CARBON DIOXIDE 31.5 mmol/L (21.0-32.0); CHLORIDE - SERUM 103 mmol/L (98-107); CREATININE - SERUM 0.7 mg/dL (0.6-1.3); GLUCOSE 119 mg/dL (74-106); MAGNESIUM - SERUM 1.8 mg/dL (1.8-2.4); PHOSPHOROUS 3.4 mg/dL (2.5-4.9); POTASSIUM - SERUM 4.2 mmol/L (3.5-5.1); SODIUM 138 mmol/L (136-145); UREA NITROGEN 10 mg/dL (7-18); eGFR NON AFRICAN AMERICAN > 90 mL/min (90-120)
[2017-10-16 08:31] VITALS: BP 132/77
[2017-10-16 12:45] VITALS: BP 138/83
[2017-10-16 17:56] VITALS: BP 132/74
[2017-10-16 22:18] VITALS: BP 128/72
[2017-10-17 04:10] VITALS: BP 117/72
[2017-10-17 06:28] LABS: CALC OSMOLALITY 276 mosm/kg (275-300); CALCIUM 7.8 mg/dL (8.5-10.1); CARBON DIOXIDE 33.6 mmol/L (21.0-32.0); CHLORIDE - SERUM 104 mmol/L (98-107); CREATININE - SERUM 0.8 mg/dL (0.6-1.3); GLUCOSE 100 mg/dL (74-106); MAGNESIUM - SERUM 1.9 mg/dL (1.8-2.4); PHOSPHOROUS 2.9 mg/dL (2.5-4.9); SODIUM 139 mmol/L (136-145); UREA NITROGEN 10 mg/dL (7-18); eGFR NON AFRICAN AMERICAN > 90 mL/min (90-120)
[2017-10-17 09:20] VITALS: BP 175/64
[2017-10-17 12:03] VITALS: BP 142/76
[2017-10-17 15:39] VITALS: BP 131/76
[2017-10-17 21:48] VITALS: BP 132/74
[2017-10-18 00:56] VITALS: BP 120/68
[2017-10-18 03:44] VITALS: BP 130/71
[2017-10-18 07:08] LABS: CALC OSMOLALITY 276 mosm/kg (275-300); CALCIUM 7.8 mg/dL (8.5-10.1); CARBON DIOXIDE 32.4 mmol/L (21.0-32.0); CHLORIDE - SERUM 104 mmol/L (98-107); CREATININE - SERUM 0.9 mg/dL (0.6-1.3); GLUCOSE 76 mg/dL (74-106); PHOSPHOROUS 2.6 mg/dL (2.5-4.9); SODIUM 140 mmol/L (136-145); UREA NITROGEN 11 mg/dL (7-18); VANCOMYCIN - TROUGH 18.3 ug/mL (10.0-20.0); eGFR NON AFRICAN AMERICAN 89 mL/min (90-120)
[2017-10-18 08:06] VITALS: BP 128/66
[2017-10-18 09:45] LABS: ALBUMIN 1.8 g/dL (3.4-5.0); BILIRUBIN - DIRECT 0.13 mg/dL (0.00-0.30); BILIRUBIN - INDIRECT 0.33 mg/dL (0.00-1.00); BILIRUBIN - TOTAL 0.46 mg/dL (0.2-1.3); PROTEIN - SERUM 6.4 g/dL (6.4-8.2)
[2017-10-18 12:36] VITALS: BP 117/71
[2017-10-18 15:03] LABS: BASOPHILS 0.2 % (0-2); EOSINOPHILS 1.2 % (0-7); HEMATOCRIT 29.8 % (42.0-54.0); HEMOGLOBIN 8.9 g/dL (13.5-17.5); MCH 28.3 pg (26.0-34.0); MCHC 29.9 g/dL (31.0-37.0); MEAN PLATELET VOLUME 9.7 fL (7.4-10.4); MONOCYTES 8.9 % (2-11); NEUTROPHILS 77.7 % (40-80); PLATELET COUNT 818 10x3/uL (130-400); RBC 3.15 10x6/uL (4.20-6.10); RDW 15.4 % (11.5-14.5); WBC 14.4 10x3/uL (4.8-10.8)
[2017-10-18 15:07] LABS: MCV 94.6 fL (80.0-100.0)
[2017-10-18 15:23] VITALS: BP 117/62
[2017-10-18 20:00] VITALS: BP 135/79
[2017-10-19 04:00] VITALS: BP 146/80
[2017-10-19 07:58] VITALS: BP 148/77
[2017-10-19 08:01] LABS: BASOPHILS 0.2 % (0-2); EOSINOPHILS 0.6 % (0-7); HEMATOCRIT 26.9 % (42.0-54.0); HEMOGLOBIN 8.3 g/dL (13.5-17.5); IMMATURE GRANULOCYTES 0.7 % (0-5); LYMPHOCYTES 10.3 % (15-50); MCH 27.9 pg (26.0-34.0); MCHC 30.9 g/dL (31.0-37.0); MEAN PLATELET VOLUME 8.8 fL (7.4-10.4); MONOCYTES 6.4 % (2-11); NEUTROPHILS 81.8 % (40-80); PLATELET COUNT 883 10x3/uL (130-400); RBC 2.98 10x6/uL (4.20-6.10); WBC 13.2 10x3/uL (4.8-10.8)
[2017-10-19 08:15] LABS: MCV 90.3 fL (80.0-100.0)
[2017-10-19 08:17] LABS: ALBUMIN 1.7 g/dL (3.4-5.0); ALKALINE PHOSPHATASE 253 U/L (46-116); ALT (SGPT) 31 U/L (10-68); BILIRUBIN - TOTAL 0.49 mg/dL (0.2-1.3); CALC OSMOLALITY 281 mosm/kg (275-300); CALCIUM 7.8 mg/dL (8.5-10.1); CARBON DIOXIDE 30.6 mmol/L (21.0-32.0); CHLORIDE - SERUM 105 mmol/L (98-107); CREATININE - SERUM 0.8 mg/dL (0.6-1.3); GLUCOSE 77 mg/dL (74-106); POTASSIUM - SERUM 3.7 mmol/L (3.5-5.1); PROTEIN - SERUM 6.7 g/dL (6.4-8.2); SODIUM 142 mmol/L (136-145); UREA NITROGEN 13 mg/dL (7-18); eGFR NON AFRICAN AMERICAN > 90 mL/min (90-120)
[2017-10-19 08:24] LABS: INR 1.11 (0.85-1.17); PROTIME 13.9 SECONDS (11.6-15.0)
[2017-10-19 08:25] LABS: APTT 42.8 SECONDS (22.8-39.4)
[2017-10-19 11:19] VITALS: BP 136/69
[2017-10-19 15:43] VITALS: BP 139/76
[2017-10-19 21:19] VITALS: BP 158/79
[2017-10-19 23:47] VITALS: BP 150/77
[2017-10-20 04:05] VITALS: BP 157/83
[2017-10-20 06:08] LABS: BASOPHILS 0.1 % (0-2); EOSINOPHILS 1.9 % (0-7); HEMATOCRIT 26.7 % (42.0-54.0); HEMOGLOBIN 8.2 g/dL (13.5-17.5); IMMATURE GRANULOCYTES 0.7 % (0-5); LYMPHOCYTES 12.8 % (15-50); MCH 27.8 pg (26.0-34.0); MCHC 30.7 g/dL (31.0-37.0); MCV 90.5 fL (80.0-100.0); MEAN PLATELET VOLUME 8.4 fL (7.4-10.4); MONOCYTES 7.9 % (2-11); NEUTROPHILS 76.6 % (40-80); PLATELET COUNT 746 10x3/uL (130-400); RBC 2.95 10x6/uL (4.20-6.10); RDW 15.1 % (11.5-14.5)
[2017-10-20 06:13] LABS: WBC 8.9 10x3/uL (4.8-10.8)
[2017-10-20 06:34] LABS: ALBUMIN 1.6 g/dL (3.4-5.0); ALKALINE PHOSPHATASE 269 U/L (46-116); ALT (SGPT) 29 U/L (10-68); BILIRUBIN - TOTAL 0.29 mg/dL (0.2-1.3); CALC OSMOLALITY 279 mosm/kg (275-300); CALCIUM 7.4 mg/dL (8.5-10.1); CARBON DIOXIDE 30.1 mmol/L (21.0-32.0); CHLORIDE - SERUM 107 mmol/L (98-107); CREATININE - SERUM 0.8 mg/dL (0.6-1.3); GLUCOSE 87 mg/dL (74-106); POTASSIUM - SERUM 3.8 mmol/L (3.5-5.1); PROTEIN - SERUM 6.2 g/dL (6.4-8.2); SODIUM 142 mmol/L (136-145); eGFR NON AFRICAN AMERICAN > 90 mL/min (90-120)
[2017-10-20 06:39] LABS: UREA NITROGEN 8 mg/dL (7-18)
[2017-10-20 07:52] VITALS: BP 150/80
[2017-10-20 12:24] VITALS: BP 154/90
[2017-10-20 15:32] VITALS: BP 160/89
[2017-10-20 20:51] VITALS: BP 153/91
[2017-10-21 04:26] VITALS: BP 170/83
[2017-10-21 07:10] LABS: BASOPHILS 0.2 % (0-2); EOSINOPHILS 2.5 % (0-7); HEMATOCRIT 27.7 % (42.0-54.0); HEMOGLOBIN 8.5 g/dL (13.5-17.5); IMMATURE GRANULOCYTES 0.6 % (0-5); LYMPHOCYTES 13.3 % (15-50); MCH 27.8 pg (26.0-34.0); MCHC 30.7 g/dL (31.0-37.0); MCV 90.5 fL (80.0-100.0); MEAN PLATELET VOLUME 8.5 fL (7.4-10.4); MONOCYTES 5.9 % (2-11); NEUTROPHILS 77.5 % (40-80); PLATELET COUNT 783 10x3/uL (130-400); RBC 3.06 10x6/uL (4.20-6.10); WBC 9.7 10x3/uL (4.8-10.8)
[2017-10-21 07:12] LABS: ALBUMIN 1.7 g/dL (3.4-5.0); ALKALINE PHOSPHATASE 273 U/L (46-116); ALT (SGPT) 27 U/L (10-68); BILIRUBIN - TOTAL 0.33 mg/dL (0.2-1.3); CALC OSMOLALITY 279 mosm/kg (275-300); CALCIUM 7.6 mg/dL (8.5-10.1); CARBON DIOXIDE 29.6 mmol/L (21.0-32.0); CHLORIDE - SERUM 107 mmol/L (98-107); CREATININE - SERUM 0.7 mg/dL (0.6-1.3); GLUCOSE 88 mg/dL (74-106); POTASSIUM - SERUM 3.4 mmol/L (3.5-5.1); PROTEIN - SERUM 6.6 g/dL (6.4-8.2); SODIUM 142 mmol/L (136-145); UREA NITROGEN 7 mg/dL (7-18); eGFR NON AFRICAN AMERICAN > 90 mL/min (90-120)
[2017-10-21 08:42] VITALS: BP 148/85
[2017-10-21 11:09] VITALS: BP 151/90
[2017-10-21 15:54] VITALS: BP 168/94
[2017-10-21 21:32] VITALS: BP 157/90
[2017-10-21 23:53] VITALS: BP 163/85
[2017-10-22 03:17] VITALS: BP 147/80
[2017-10-22 05:29] LABS: BASOPHILS 0.2 % (0-2); EOSINOPHILS 2.4 % (0-7); HEMATOCRIT 28.4 % (42.0-54.0); HEMOGLOBIN 8.6 g/dL (13.5-17.5); IMMATURE GRANULOCYTES 0.9 % (0-5); LYMPHOCYTES 12.8 % (15-50); MCH 27.5 pg (26.0-34.0); MCHC 30.3 g/dL (31.0-37.0); MCV 90.7 fL (80.0-100.0); MEAN PLATELET VOLUME 8.1 fL (7.4-10.4); MONOCYTES 6.1 % (2-11); NEUTROPHILS 77.6 % (40-80); PLATELET COUNT 696 10x3/uL (130-400); RBC 3.13 10x6/uL (4.20-6.10); RDW 15.1 % (11.5-14.5); WBC 8.9 10x3/uL (4.8-10.8)
[2017-10-22 06:09] LABS: ALBUMIN 1.7 g/dL (3.4-5.0); ALKALINE PHOSPHATASE 243 U/L (46-116); ALT (SGPT) 21 U/L (10-68); BILIRUBIN - TOTAL 0.33 mg/dL (0.2-1.3); CALC OSMOLALITY 281 mosm/kg (275-300); CALCIUM 7.4 mg/dL (8.5-10.1); CARBON DIOXIDE 31.1 mmol/L (21.0-32.0); CHLORIDE - SERUM 107 mmol/L (98-107); CREATININE - SERUM 0.8 mg/dL (0.6-1.3); GLUCOSE 82 mg/dL (74-106); POTASSIUM - SERUM 3.5 mmol/L (3.5-5.1); PROTEIN - SERUM 6.5 g/dL (6.4-8.2); SODIUM 143 mmol/L (136-145); UREA NITROGEN 7 mg/dL (7-18); eGFR NON AFRICAN AMERICAN > 90 mL/min (90-120)
[2017-10-22 07:56] VITALS: BP 153/82
[2017-10-22] MEDS ORDERED: LOVENOX30 MG/0.3 SC (09:03)
[2017-10-22] MEDS ORDERED: IPRAT-ALBUT 0.5-3 ML UPD (09:03)
[2017-10-22] MEDS ORDERED: MUCINEX600 MG PO (09:03)
[2017-10-22] MEDS ORDERED: TESSALON PERLE100 MG PO (09:03)
[2017-10-22] MEDS ORDERED: UNASYN IV (09:04)
[2017-10-22] MEDS ORDERED: NS IV (09:04)
[2017-10-22] MEDS ORDERED: MAXIPIME 2 GM/D52 G1 IV (09:04)
[2017-10-22] MEDS ORDERED: DIFLUCAN PREMIX IV (09:04)
[2017-10-22] MEDS ORDERED: FLORAJEN3 CAPS460 MG PO (09:05)
== END 2017-10-22 10:55 | disposition short-term general hospital (02) | DRG 862 ==
LOC: D.M2 21:00 → D.MS 22:53
PROVIDERS: Family Medicine; General Practice; Radiology Diagnostic Radiology; Specialist; Surgery
PROC: 02HV33Z Insertion of Infusion Device into Superior Vena Cava, Percutaneous Approach (ICD-10-PCS; 2017-10-08)
PROC: B548ZZA Ultrasonography of Superior Vena Cava, Guidance (ICD-10-PCS; 2017-10-08)
PROC: 0W9G30Z Drainage of Peritoneal Cavity with Drainage Device, Percutaneous Approach (ICD-10-PCS; principal; 2017-10-08 15:00)
PROC: 0W2GX0Z Change Drainage Device in Peritoneal Cavity, External Approach (ICD-10-PCS; 2017-10-12)
PROC: BW111ZZ Fluoroscopy of Abdomen and Pelvis using Low Osmolar Contrast (ICD-10-PCS; 2017-10-19)
DX: T81.4XXA Infection following a procedure, initial encounter (principal); K65.1 Peritoneal abscess; G92 Toxic encephalopathy; K56.7 Ileus, unspecified; I10 Essential (primary) hypertension; J44.9 Chronic obstructive pulmonary disease, unspecified; Z99.81 Dependence on supplemental oxygen; N40.1 Benign prostatic hyperplasia with lower urinary tract symptoms; R33.8 Other retention of urine; K75.81 Nonalcoholic steatohepatitis (NASH); E87.6 Hypokalemia; R73.9 Hyperglycemia, unspecified; R79.89 Other specified abnormal findings of blood chemistry; B96.5 Pseudomonas (aeruginosa) (mallei) (pseudomallei) as the cause of diseases classified elsewhere; B96.20 Unspecified Escherichia coli [E. coli] as the cause of diseases classified elsewhere; B95.2 Enterococcus as the cause of diseases classified elsewhere; B96.89 Other specified bacterial agents as the cause of diseases classified elsewhere